=== PATIENT | female | born 1960 | race Caucasian/White ===

== ENCOUNTER 2018-12-27 18:40 | Emergency (ER) | payer BC, OTHER ==
[~2018-12-27] VITALS: Ht 162.6 cm; Wt 66.7 kg
--- OUTSIDE RECORDS SUMMARY | 2018-12-27 18:43 | XMS REPORT | Encounter Summary ---
Author Organization Unknown Address [address] [place] [address] Phone [phone] Reason for Visit Bilateral Medical Complaint Instructions 1. Impacted cerumen of bilateral ears earwax blockage: care instructions 2. Hyperlipidemia high cholesterol: care instructions 3. History of thyroid disorder Discussion Note Pt is in NAD; Verbalizes understanding of all instructions with no questions at this time. Plan of Care Patient Instructions Recommend continue Debrox over the counter as needed as per package insert. Alternate with Ibuprofen and acetaminophen every 4hrs as needed for pain. Take medications as prescribed. Return to clinic or follow up with your PCP within 2- 3 days if symptoms worsen as discussed. Follow up with PCP regarding overall care. Reminders Provider Appointments None recorded. Lab None recorded. Referral None recorded. Procedures None recorded. Surgeries None recorded. Imaging None recorded. Medications Name Start Date atorvastatin 10 mg tablet TK 1 T PO ONCE D cyclobenzaprine 10 mg tablet TK 1 T PO QHS Fluarix Quad 8780-0627 (PF) 60 mcg (15 mcg x 4)/0.5 mL IM syringe TO BE ADMINISTERED BY PHARMACIST FOR IMMUNIZATION levothyroxine 75 mcg tablet TK 1 T PO ONCE D meloxicam 7.5 mg tablet TK 1 T PO QD WF valsartan 80 mg tablet TK 1 T PO D FOR BP Medications Administered None recorded. Vitals Height Weight BMI Blood Pressure 5 ft 4 in 153 lbs 26.3 kg/m2 130/82 mm[Hg] Lab Results None recorded. Allergies Code Code System Name Reaction Severity Status Onset 4053 RxNorm Erythromycin Base Other Active Problems Name Status Onset Date Source Impacted Cerumen Active Encounter Otalgia Active Encounter Acute Sinusitis Active Encounter Acute Upper Respiratory Infection Active Encounter Allergic Rhinitis Active Encounter Cough Active Encounter Procedures Date Name Performed by Cholecystectomy Information not available Vaccine List Vaccine Type influenza, seasonal, injectable 01/20/2011 zoster 04/08/20160.5 mL Social History Smoking Status Never Smoker Past Encounters 02/27/2017 Impacted Cerumen of Bilateral Ears; Hyperlipidemia; History of Thyroid Disorder DANIELLE Sanders: [address] [facility], [place] [address], Ph. History of Present Illness Ear Complaint Reported By: Patient HPI: Location: bilateral. Quality: ears feel full/plugged. Severity: continuous. Duration: intermittent, ongoing, symptoms lasting over 2 weeks; x one month. Onset/Timing: still present, gradual; recurrent. Context: no sick contacts, no recent swimming/water in ear, no exposure to second hand smoke, no head trauma, not grinding teeth, no recent air travel. Modifying factors: does not hurt to lie on, or pull on ear, does not hurt to chew, OTC medication. Associated Symptoms: no discharge from the ears, no nose/sinus problems, no ringing in the ears, no fever, no chills, no earache, no dizziness, no vertigo, no headache, no muscle aches, hearing loss, popping noise in the ears Review of Systems:ROS as noted in the HPI Review of Systems Basic Reported By: Patient Physical Exam Adult Basic, Adult Female Complete Reported By: Patient Constitutional: General Appearance: healthy-appearing, well-nourished, well-developed. Level of Distress: NAD. Ambulation: ambulating normally Psychiatric: Mental Status: active and alert. Orientation: to time, to place, to person Duy-Eoim-Cweoy-Throat: Ears: no lesions on external ear, no outer ear tenderness, TMs clear, EAC ceruminous, EAC occluded with cerumen, cerumen removed to visualize TM. Hearing: hearing decreased Neck: Neck: supple Lungs: Respiratory effort: no dyspnea, no tachypnea, no use of accessory muscles, no intercostal retractions. Auscultation: breath sounds normal Cardiovascular: Heart Auscultation: RRR, no murmurs Neurologic: Gait and Station: normal gait, normal station. Cranial Nerves: grossly intact. Coordination and Cerebellum: miswen-wx-ppfs intact
--- OUTSIDE RECORDS SUMMARY | 2018-12-27 18:43 | XMS REPORT | Continuity of Care Document ---
Author Author [employer] Address Unknown Phone Unavailable Care Team Providers Care Level Vial Curvature Gauger Name Role Phone Solaborate Information Metaconomy Unavailable Unavailable Problems Problem Status Onset Date Classification Date Reported Comments Source Allergic rhinitis 09/04/2018 Diagnosis 09/04/2018 [facility] Impacted cerumen of bilateral ears 12/13/2017 Problem 09/04/2018 [facility] Hyperlipidemia 12/13/2017 Problem 09/04/2018 [facility] Essential hypertension 12/13/2017 Problem 09/04/2018 [facility] Immunization 12/13/2017 Problem 09/04/2018 [facility] History of thyroid disorder 02/27/2017 Diagnosis 02/28/2017 [facility] Counseling 04/08/2016 Diagnosis 04/08/2016 [facility] Impacted cerumen Problem 02/28/2017 [facility] Otalgia Problem 02/28/2017 [facility] Acute sinusitis Problem 02/28/2017 [facility] Acute upper respiratory infection Problem 02/28/2017 [facility] Cough Problem 02/28/2017 [facility] Medications Medication Details Route Status Patient Instructions Ordering Provider Order Date Source atorvastatin 10 MG Oral Tablet atorvastatin 10 mg tablet TAKE 1 TABLET BY MOUTH EVERY DAY Active [facility] Cyclobenzaprine hydrochloride 10 MG Oral Tablet cyclobenzaprine 10 mg tablet TK 1 T PO QHS Active [facility] Fluarix Quad (PF) 60 mcg (15 mcg x 4)/0.5 mL IM syringe Fluarix Quad (PF) 60 mcg (15 mcg x 4)/0.5 mL IM syringe TO BE ADMINISTERED BY PHARMACIST FOR IMMUNIZATION Active [facility] Levothyroxine Sodium 0.075 MG Oral Tablet levothyroxine 75 mcg tablet TK 1 T PO ONCE D Active [facility] meloxicam 7.5 MG Oral Tablet meloxicam 7.5 mg tablet TK 1 T PO QD WF Active [facility] valsartan 80 MG Oral Tablet valsartan 80 mg tablet TK 1 T PO D FOR BP Active [facility] Aspir-81 Aspir-81 Active [facility] Levothyroxine Sodium 0.075 MG Oral Tablet [Synthroid] Synthroid 75 mcg tablet Active [facility] 0.5 ML influenza A virus A/[place] (H3N2) antigen 0.03 MG/ML / influenza A virus A//[id number] (H1N1) antigen 0.03 MG/ML / influenza B virus B/ antigen 0.03 MG/ML / influenza B virus B/[facility]/[id number]-[id number] antigen 0.03 MG/ML Prefilled Syringe [Flucelvax Quadrivalent ] Flucelvax Quad [id number] (PF) 60 mcg (15 mcg x 4)/0.5 mL IM syringe TO BE ADMINISTERED BY PHARMACIST FOR IMMUNIZATION Active [facility] Fluticasone propionate 0.05 MG/ACTUAT Metered Dose Nasal [place] fluticasone propionate 50 mcg/actuation nasal spray,suspension [place] 1 spray every day by intranasal route as directed for 7 days. Active [facility] Medrol (Dima) 4 mg tablets in a dose pack Medrol (Dima) 4 mg tablets in a dose pack Take 1 dose pk by oral route. Active [facility] valsartan 40 MG Oral Tablet valsartan 40 mg tablet Active [facility] Allergies, Adverse Reactions, Alerts Substance Category Reaction Severity Reaction type Status Date Reported Comments Source Erythromycin Base Other Allergy to substance 05/17/2009 [facility] Immunizations Immunization Date Given Site Status Last Updated Comments Source influenza, injectable, quadrivalent 01/20/2018 completed [facility] Tdap 12/13/2017 completed [facility] influenza, unspecified formulation 01/20/2017 completed [facility] zoster 04/08/2016 completed [facility] influenza, seasonal, injectable 01/20/2011 completed [facility] Results No Data Provided for This Section Pathology Reports No Data Provided for This Section Diagnostic Reports No Data Provided for This Section Consultation Notes No Data Provided for This Section Discharge Summaries No Data Provided for This Section History and Physicals No Data Provided for This Section Vital Signs Vital Sign Value Date Comments Source Diastolic (mm Hg) 70 09/04/2018 [facility] Height 64 09/04/2018 [facility] Systolic (mm Hg) 116 09/04/2018 [facility] Weight 145 09/04/2018 [facility] Diastolic (mm Hg) 84 12/13/2017 [facility] Height 64 12/13/2017 [facility] Systolic (mm Hg) 122 12/13/2017 [facility] Weight 142 12/13/2017 [facility] Diastolic (mm Hg) 82 02/27/2017 [facility] Height 64 02/27/2017 [facility] Systolic (mm Hg) 130 02/27/2017 [facility] Weight 153 02/27/2017 [facility] Diastolic (mm Hg) 86 05/19/2016 [facility] Height 64 05/19/2016 [facility] Systolic (mm Hg) 130 05/19/2016 [facility] Weight 153 05/19/2016 [facility] Height 64 04/08/2016 [facility] Diastolic (mm Hg) 84 10/09/2015 [facility] Height 64 10/09/2015 [facility] Systolic (mm Hg) 120 10/09/2015 [facility] Weight 150 10/09/2015 [facility] Encounters Location Location Details Encounter Type Encounter Number Reason For Visit Attending Provider ADM Date DC Date Status Source [place] - [facility] - [id number] Paula Cain, [employer]CHO[employer] MEDIA SPECIALIST: [address] [place] [address], Ph. [id number] Paula Cain 10/09/2015 [facility] [place] - [facility] - [id number] Paula Cain, SCHOOL [employer] MEDIA SPECIALIST: [address] [facility] [place] [address], Ph. [id number] Paula Cain 04/08/2016 [facility] [place] [facility] - [id number] Amadou Mayfield, SCHOOL [employer] MEDIA SPECIALIST: [address] [place] [address], Ph. [id number] Amadou Mayfield 05/19/2016 [facility] [place] [facility] - [id number] Sai Lou, SCHOOL [employer] MEDIA SPECIALIST: [address] [facility] [address], Ph. [id number] Sai Lou 02/27/2017 [facility] [place] [facility] - [id number] Steph Carrington, SCHOOL [employer] MEDIA SPECIALIST-C: [address] [place] [address], Ph. [id number] Steph Carrington 12/13/2017 [facility] [place] [facility] - [id number] Adán Jacobo, SCHO[employer] MEDIA SPECIALIST-C: [address] [place] [address], Ph. [id number] Adán Jacobo 09/04/2018 [facility] Procedures Procedure Code Date Perfomer Comments Source Cholecystectomy [facility] Assessment and Plan No Data Provided for This Section Plan of Care No Data Provided for This Section Social History Social History Date Source Smoking Status Never Smoker 08/21/2011 [facility] Family History No Data Provided for This Section Advance Directives No Data Provided for This Section Functional Status No Data Provided for This Section
--- OUTSIDE RECORDS SUMMARY | 2018-12-27 18:43 | XMS REPORT ---
Author Author [facility] Address Unknown Phone Unavailable Care Team Providers Care Baby Stroller Rental Clerk Name Role Phone Unavailable Unavailable Payers Payer Name Policy Type Policy Number Effective Date Expiration Date Problems This patient has no known problems. Allergies, Adverse Reactions, Alerts Allergy Name Allergy Type Status Severity Reaction(s) Onset Date Inactive Date Treating Clinician Comments erythromycin base DA Active U 2008-12-08 00:00:00 Medications This patient has no known medications.
--- OUTSIDE RECORDS SUMMARY | 2018-12-27 18:43 | XMS REPORT | Encounter Summary ---
Author Organization Unknown Address [address] [place] [address] Phone [phone] Reason for Visit Bilateral Medical Complaint; Immunization Instructions 1. Impacted cerumen of bilateral ears 2. Immunization Boostrix Tdap 2.5 Lf unit-8 mcg-5 Lf/0.5 mL intramuscular syringe 3. Essential hypertension high blood pressure: care instructions 4. Hyperlipidemia high cholesterol: care instructions Discussion Note Pt is in NAD; Verbalizes understanding of all instructions with no questions at this time. Plan of Care Patient Instructions Recommend continue Debrox over the counter as needed as per package insert for recurrent ear wax buildup if instructed by your PCP. Take medications as prescribed. Follow up with your PCP within 2-3 days if symptoms worsen as discussed. Recommend monitor BP at home and document, bring BP log to PCP for review. Recommend follow a low sodium diet and exercise 30-45 mins/d 3-4 days a week. Td Booster every 10 years after first Tdap vaccine. Refer to your VIS handout as discussed in clinic today regarding your care after administration. Follow up with your PCP as needed. In case of emergecy call 911 or go to nearest ER. Reminders Provider Appointments None recorded. Lab None recorded. Referral None recorded. Procedures None recorded. Surgeries None recorded. Imaging None recorded. Medications Name Start Date atorvastatin 10 mg tablet TAKE 1 TABLET BY MOUTH EVERY DAY levothyroxine 75 mcg tablet TK 1 T PO ONCE D valsartan 80 mg tablet TK 1 T PO D FOR BP Medications Administered None recorded. Vitals Height Weight BMI Blood Pressure 5 ft 4 in 142 lbs 24.4 kg/m2 122/84 mm[Hg] Lab Results None recorded. Allergies Code Code System Name Reaction Severity Status Onset 4053 RxNorm Erythromycin Base Other Active Problems Name Status Onset Date Source Hyperlipidemia Active 12/13/2017 Essential Hypertension Active 12/13/2017 Immunization Active 12/13/2017 Impacted Cerumen of Bilateral Ears Active 12/13/2017 Procedures Date Name Performed by Cholecystectomy Information not available Vaccine List Vaccine Type influenza, seasonal, injectable 01/20/2011 influenza, unspecified formulation 01/20/2017 Tdap 12/13/20170.5 mL zoster 04/08/20160.5 mL Social History Smoking Status Never Smoker Past Encounters 12/13/2017 Impacted Cerumen of Bilateral Ears; Immunization; Essential Hypertension; Hyperlipidemia Steph Zeb, SHEET IRONWORKER-C: [address] [place] [address], Ph. History of Present Illness Ear Complaint Reported By: Patient HPI: Location: bilateral. Quality: ears feel full/plugged, muffled. Severity: same, continuous. Duration: constant, ongoing. Onset/Timing: gradual, fluctuating, occur every few weeks. Context: no sick contacts, no recent swimming/water in ear, no exposure to second hand smoke, no head trauma, not grinding teeth, no recent air travel. Modifying factors: does not hurt to lie on, or pull on ear, does not hurt to chew, nothing gives relief. Associated Symptoms: no discharge from the ears, no nose/sinus problems, no ringing in the ears, no fever, no chills, no earache, no dizziness, no vertigo, no headache, no muscle aches, hearing loss, popping noise in the ears Immunization Reported By: Patient HPI: Immunization Request (normal) no symptoms. Immunization eligibility questions No vaccines in last month, No reaction to previous vaccines:, No Known Allergies Review of Systems Basic Reported By: Patient Constitutional: Constitutional: no fever Eyes: Eyes: no eye complaints Hhzi-Hxqe-Xxikr-Throat: Ears: ; Bilateral ear fullness and popping sensation since yesterday. Nose: no nose/sinus problems. Mouth/Throat: no sore throat, no bleeding gums, no mouth complaints, no teeth problems Cardiovascular: Cardiovascular: no chest pain, no shortness of breath, no known heart murmur Respiratory: Respiratory: no cough, no wheezing, no shortness of breath Gastrointestinal: Gastrointestinal: no abdominal pain, no vomiting / diarrhea Genitourinary: Genitourinary: no urinary complaints, no discharge Musculoskeletal: Musculoskeletal: no muscle aches, no muscle weakness, no arthralgias/joint pain, no back pain Skin: Skin: no abnormal / changing mole, no jaundice, no rashes Neurologic: Neurologic: no loss of consciousness, no weakness, no numbness, no seizures, no dizziness, no headaches Physical Exam Adult Basic, Adult Female Complete, Immunization Reported By: Patient Constitutional: General Appearance: healthy-appearing, well-nourished, well-developed. Level of Distress: NAD. Ambulation: ambulating normally Psychiatric: Mental Status: active and alert. Orientation: to time, to place, to person Qta-Auol-Jlcpl-Throat: Ears: no lesions on external ear, no outer ear tenderness, EAC ceruminous, EAC occluded with cerumen, cerumen removed to visualize TM. Hearing: hearing decreased. Nose: no lesions on external nose, nares patent, no septal deviation, nasal passages clear, no sinus tenderness, no nasal discharge. Lips, Teeth, and Gums: no mouth or lip ulcers, no bleeding gums, normal dentition. Oropharynx: moist mucous membranes, no erythema, no exudates, tonsils not enlarged Neck: Neck: supple Lungs: Respiratory effort: no dyspnea, no tachypnea, no use of accessory muscles, no intercostal retractions. Auscultation: breath sounds normal Cardiovascular: Heart Auscultation: RRR, no murmurs Neurologic: Gait and Station: normal gait, normal station. Cranial Nerves: grossly intact
--- OUTSIDE RECORDS SUMMARY | 2018-12-27 18:43 | XMS REPORT | Encounter Summary ---
Author Organization Unknown Address [address] [place] [address] Phone [phone] Reason for Visit Medical Complaint; clean ears Instructions 1. Impacted cerumen Discussion Note: None recorded. Patient educational handouts: No information available. Plan of Care Patient Instructions Afterears irrigation,if noted fever, ear pain, then call clinic or see pcp. Reminders Provider Appointments None recorded. Lab None recorded. Referral None recorded. Procedures None recorded. Surgeries None recorded. Imaging None recorded. Medications Name Start Date atorvastatin 10 mg tablet Synthroid 75 mcg tablet Medications Administered None recorded. Vitals Height Weight BMI Blood Pressure 5 ft 4 in 150 lbs 25.7 120/84 Lab Results None recorded. Allergies Name Reaction Severity Onset Erythromycin Base Problems Name Status Onset Date Source Impacted Cerumen Active Encounter Otalgia Active Encounter Acute Sinusitis Active Encounter Acute Upper Respiratory Infection Active Encounter Allergic Rhinitis Active Encounter Cough Active Encounter Procedures Date Name Performed by Cholecystectomy Information not available Vaccine List Vaccine Type influenza, seasonal, injectable 01/19/2011 Social History Smoking Status Never Smoker Past Encounters 10/09/2015 Impacted Cerumen Paula Cain, HEAD GREENSKEEPER: [address] [place] [address], Ph. History of Present Illness Ear Complaint Reported By: Patient HPI: Location: bilateral. Quality: ears feel full/plugged, muffled. Severity: same. Duration: constant. Onset/Timing: still present. Context: no sick contacts, no recent swimming/water in ear, no exposure to second hand smoke, no head trauma, not grinding teeth, no recent air travel. Modifying factors: does not hurt to lie on, or pull on ear, does not hurt to chew. Associated Symptoms: no discharge from the ears, no hearing loss, no nose/sinus problems, no popping noise in the ears, no ringing in the ears, no fever, no chills, no earache, no dizziness, no vertigo, no headache Review of Systems Basic Reported By: Patient Constitutional: Constitutional: no fever Eyes: Eyes: no eye complaints Ujwb-Pkqz-Sqcjv-Throat: Ears: ; muffle ears. Nose: no nose/sinus problems. Mouth/Throat: no sore [...] headaches Physical Exam Adult Basic, Adult Female Complete Constitutional: General Appearance: healthy-appearing, well-nourished, well-developed. Level of Distress: NAD. Ambulation: ambulating normally Psychiatric: Mental Status: active and alert. Orientation: to time, to place, to person Eyes: Lids and Conjunctivae: non-injected, no discharge, no pallor. Pupils: PERRLA. Corneas: grossly intact. EOM: EOMI. Lens: clear. Sclerae: non-icteric. Vision: acuity grossly intact Rod-Lufk-Vuroe-Throat: Ears: no lesions on external ear, no outer ear tenderness, EACs clear, TMs clear, EAC occluded with cerumen, cerumen removed to visualize TM. Hearing: no hearing loss. Nose: no lesions on external nose, nares patent, no septal deviation, nasal passages clear, no sinus tenderness, no nasal discharge. Lips, Teeth, and Gums: no mouth or lip ulcers, no bleeding gums, normal dentition. Oropharynx: moist mucous membranes, no erythema, no exudates, tonsils not enlarged Neck: Neck: supple, trachea midline, no masses, FROM. Lymph Nodes: no cervical LAD, no supraclavicular LAD. Thyroid: no enlargement, non-tender, no nodules Lungs: Respiratory effort: no dyspnea, no tachypnea, no use of accessory muscles, no intercostal retractions. Auscultation: breath sounds normal Cardiovascular: Heart Auscultation: RRR, no murmurs. Neck vessels: no carotid bruits
--- OUTSIDE RECORDS SUMMARY | 2018-12-27 18:43 | XMS REPORT | Encounter Summary ---
Author Organization Unknown Address [address] [place] [address] Phone [phone] Reason for Visit Bilateral Medical Complaint Instructions 1. Allergic rhinitis allergies: care instructions managing your allergies: care instructions Medrol (Dima) 4 mg tablets in a dose pack fluticasone propionate 50 mcg/actuation nasal spray,suspension Discussion Note: None recorded. Plan of Care Patient Instructions Rhinitis is swelling and irritation in the nose. Allergies and infections are often the cause. Your nose may run or feel stuffy. Other symptoms are itchy and sore eyes, ears, throat, and mouth. If allergies are the cause, your doctor may do tests to find out what you are allergic to. You may be able to stop symptoms if you avoid the things that cause them. Your doctor may suggest or prescribe medicine to ease your symptoms. Follow-up care is a fragoso part of your treatment and safety. Be sure to make and go to all appointments, and call your doctor if you are having problems. It's also a good idea to know your test results and keep a list of the medicines you take. How can you care for yourself at home? If your rhinitis is caused by allergies, try to find out what sets off (triggers) your symptoms. Take steps to avoid these triggers. Avoid yard work. It can stir up both pollen and mold. Do not smoke or allow others to smoke around you. If you need help quitting, talk to your doctor about stop-smoking programs and medicines. These can increase your chances of quitting for good. Do not use aerosol sprays, cleaning products, or perfumes. If pollen is one of your triggers, close your house and car windows during blooming season. Clean your house often to control dust. Keep pets outside. If your doctor recommends nyth-fza-rmtpays medicines to relieve symptoms, take your medicines exactly as prescribed. Call your doctor if you think you are having a problem with your medicine. Use saline (saltwater) nasal washes to help keep your nasal passages open and wash out mucus and bacteria. You can buy saline nose drops at a grocery store or drugstore. Or you can make your own at home by adding 1 teaspoon of salt and 1 teaspoon of baking soda to 2 cups of distilled water. If you make your own, fill a bulb syringe with the solution, insert the tip into your nostril, and squeeze gently. Blow your nose. When should you call for help? Call your doctor now or seek immediate medical care if: You are having trouble breathing. Watch closely for changes in your health, and be sure to contact your doctor if: Mucus from your nose gets thicker (like pus) or has new blood in it. You have new or worse symptoms. You do not get better as expected. Reminders Provider Appointments None recorded. Lab None recorded. Referral None recorded. Procedures None recorded. Surgeries None recorded. Imaging None recorded. Medications Name Start Date atorvastatin 10 mg tablet TAKE 1 TABLET BY MOUTH EVERY DAY Flucelvax Quad 2746-0275 (PF) 60 mcg (15 mcg x 4)/0.5 mL IM syringe TO BE ADMINISTERED BY PHARMACIST FOR IMMUNIZATION fluticasone propionate 50 mcg/actuation nasal spray,suspension Bowers 1 spray every day by intranasal route as directed for 7 days. levothyroxine 75 mcg tablet TK 1 T PO ONCE D Medrol (Dima) 4 mg tablets in a dose pack Take 1 dose pk by oral route. valsartan 40 mg tablet Medications Administered None recorded. Vitals Height Weight BMI Blood Pressure 5 ft 4 in 145 lbs 24.9 kg/m2 116/70 mm[Hg] Lab Results None recorded. Allergies Code Code System Name Reaction Severity Status Onset 4053 RxNorm Erythromycin Base Other Active Problems Name Status Onset Date Source Hyperlipidemia Active 12/13/2017 Essential Hypertension Active 12/13/2017 Immunization Active 12/13/2017 Impacted Cerumen of Bilateral Ears Active 12/13/2017 Procedures Date Name Performed by Cholecystectomy Information not available Vaccine List Vaccine Type influenza, injectable, quadrivalent 01/20/2018 influenza, seasonal, injectable 01/20/2011 influenza, unspecified formulation 01/20/2017 Tdap 12/13/20170.5 mL zoster 04/08/20160.5 mL Social History Smoking Status Never Smoker Past Encounters 09/04/2018 Allergic Rhinitis TABATHA EllsworthC: [address] [place] [address], Ph. History of Present Illness [id number]-Dmwptbb Reported By: Patient HPI: Location: head/sinuses. Quality: nasal/sinus congestion. Duration: 4days. Severity: moderate. Onset/Timing: gradual. Context: no sick contacts, no foreign travel, non-smoker, allergies. Associated Symptoms: no sputum production, no shortness of breath, no wheezing, no change in number of pillows needed to sleep at night, no sweats, no significant weight gain, no significant weight loss, no sore throat, no vomiting, no diarrhea, no rash, no nausea, no fever, no muscle aches, no headache, morning cough Note:58 YO female with bilateral eye redness, itching, itching nose, PND, hoarse voice, slight cough x 4 days (declines RFT and RSZT) Review of Systems:ROS as noted in the HPI Review of Systems Basic Reported By: Patient Notes: 58 YO female with bilateral eye redness, itching, itching nose, PND, hoarse voice, slight cough x 4 days (declines RFT and RSZT) Physical Exam Adult Basic, Adult Female Complete Reported By: Patient Constitutional: General Appearance: healthy-appearing, well-nourished, well-developed. Level of Distress: NAD. Ambulation: ambulating normally Psychiatric: Mental Status: active and alert. Orientation: to time, to place, to person Ejq-Nuto-Yevgq-Throat: Ears: no lesions on external ear, no outer ear tenderness, EACs clear, TMs clear. Hearing: no hearing loss. Nose: no lesions on external nose, nares patent, no septal deviation, nasal passages clear, no sinus tenderness, post nasal drip. Lips, Teeth, and Gums: no mouth or lip ulcers, no bleeding gums, normal dentition. Oropharynx: moist mucous membranes, no erythema, no exudates, tonsils not enlarged Lungs: Respiratory effort: no dyspnea, no tachypnea, no use of accessory muscles, no intercostal retractions. Auscultation: breath sounds normal Cardiovascular: Heart Auscultation: RRR, no murmurs Notes: 58 YO female with bilateral eye redness, itching, itching nose, PND, hoarse voice, slight cough x 4 days (declines RFT and RSZT)
--- OUTSIDE RECORDS SUMMARY | 2018-12-27 18:43 | XMS REPORT | Encounter Summary ---
Author Organization Unknown Address [address] [place] [address] Phone [phone] Reason for Visit Medical Complaint; ear issues Instructions 1. Impacted cerumen earwax blockage: care instructions Discussion Note See handout Plan of Care Patient Instructions See handout Reminders Provider Appointments None recorded. Lab None recorded. Referral None recorded. Procedures None recorded. Surgeries None recorded. Imaging None recorded. Medications Name Start Date atorvastatin 10 mg tablet Synthroid 75 mcg tablet valsartan 80 mg tablet TAKE ONE (1) TABLET(S) BY MOUTH ONCE A DAY FOR BLOOD PRESSURE. Medications Administered None recorded. Vitals Height Weight BMI Blood Pressure 5 ft 4 in 153 lbs 26.3 130/86 Lab Results None recorded. Allergies Name Reaction Severity Onset Erythromycin Base Other Problems Name Status Onset Date Source Impacted Cerumen Active Encounter Otalgia Active Encounter Acute Sinusitis Active Encounter Acute Upper Respiratory Infection Active Encounter Allergic Rhinitis Active Encounter Cough Active Encounter Procedures Date Name Performed by Cholecystectomy Information not available Vaccine List Vaccine Type influenza, seasonal, injectable 01/19/2011 zoster 04/08/20160.5 mL Social History Smoking Status Never Smoker Past Encounters 05/19/2016 Impacted Cerumen Amadou Mayfield, [employer]: [address] [place] [address], Ph. History of Present Illness Ear Complaint Reported By: Patient HPI: Location: bilateral. Quality: ears feel full/plugged. Severity: same, continuous. Duration: constant. Onset/Timing: worse, still present. Context: no sick contacts, no recent swimming/water in ear, no exposure to second hand smoke, no head trauma, not grinding teeth, no recent air travel; History of cerumen impaction. Modifying factors: does not hurt to lie on, or pull on ear, does not hurt to chew, OTC medication. Associated Symptoms: no discharge from the ears, no nose/sinus problems, no popping noise in the ears, no ringing in the ears, no fever, no chills, no earache, no dizziness, no vertigo, no headache, hearing loss Review of Systems:ROS as noted in the HPI Review of Systems Basic Reported By: Patient Physical Exam Adult Basic Constitutional: General Appearance: healthy-appearing, well-nourished, well-developed. Level of Distress: NAD. Ambulation: ambulating normally Psychiatric: Mental Status: active and alert. Orientation: to time, to place, to person Pyl-Nmdx-Itwkn-Throat: Ears: no lesions on external ear, no outer ear tenderness, EACs clear, TMs clear, EAC occluded with cerumen, cerumen removed to visualize TM. Hearing: no hearing loss Neck: Lymph Nodes: no cervical LAD, no supraclavicular LAD Lungs: Respiratory effort: no dyspnea, no tachypnea, no use of accessory muscles, no intercostal retractions Cardiovascular: Heart Auscultation: RRR, no murmurs
--- OUTSIDE RECORDS SUMMARY | 2018-12-27 18:43 | XMS REPORT | Encounter Summary ---
Author Organization Unknown Address [address] [place] [address] Phone [phone] Reason for Visit Immunization Instructions 1. Immunization Zostavax (PF) 19,400 unit/0.65 mL subcutaneous suspension 2. Counseling Discussion Note: None recorded. Patient educational handouts: No information available. Plan of Care Reminders Provider Appointments None recorded. Lab None recorded. Referral None recorded. Procedures None recorded. Surgeries None recorded. Imaging None recorded. Medications Name Start Date atorvastatin 10 mg tablet Synthroid 75 mcg tablet valsartan 80 mg tablet TAKE ONE (1) TABLET(S) BY MOUTH ONCE A DAY FOR BLOOD PRESSURE. Medications Administered None recorded. Vitals Height 5 ft 4 in Lab Results None recorded. Allergies Name Reaction [...] History Smoking Status Never Smoker Past Encounters 04/08/2016 Immunization; Counseling Paula Cain, [employer]: [address] [place] [address], Ph. History of Present Illness Immunization Reported By: Patient HPI: Immunization Request (normal) no symptoms, No medical complaints. Immunization eligibility questions No vaccines in last month, No reaction to previous vaccines:, No Known Allergies Review of Systems Basic Reported By: Patient Constitutional: Constitutional: no fever Physical Exam Immunization Reported By: Patient General Appearance: General: well-developed, well-nourished, no acute distress
--- NOTE | 2018-12-27 21:09 | Diagnostic Imaging Report ---
Hand Complete CPT code: 10929 Indication:Fall, pain Technique: Three views of the right hand obtained Comparison: None. Findings: Distal radius and ulna appear intact. Carpal bones appear generally well aligned. The digits are intact and normally aligned. There are mild degenerative changes of the distal IP joints of the second and third digits. IMPRESSION: No evidence for displaced fracture or current dislocation of the hand. Signed by: Dr. Haris Saldana MD on 12/27/2018 9:05 PM
--- NOTE | 2018-12-27 21:10 | Diagnostic Imaging Report ---
Wrist Complete right CPT Code: 42456 Indication: Fall, pain Technique: Three views right wrist obtained. Comparison: None Findings: The osseous structures are well developed and mineralized. No fractures or dislocations. No radio-opaque foreign bodies in the soft tissues. IMPRESSION: No evidence of displaced fracture or dislocation involving the wrist. Signed by: Dr. Haris Saldana MD on 12/27/2018 9:06 PM
== END 2018-12-27 21:27 | disposition home or self-care (01) ==
LOC: ER 18:40
DX: S63.521A Sprain of radiocarpal joint of right wrist, initial encounter (principal); W01.0XXA Fall on same level from slipping, tripping and stumbling without subsequent striking against object, initial encounter; Y99.0 Civilian activity done for income or pay
CPT/HCPCS: 99284